=== PATIENT | male | born 1990 | race Caucasian/White ===

== ENCOUNTER 2022-04-27 07:29 | Outpatient (CLI) | payer OTHER | END 2022-04-27 07:30 | disposition home or self-care (01) | LOC: SCSMRI 07:29 | PROVIDERS: ATTEND Neurological Surgery | DX: M54.16 Radiculopathy, lumbar region (principal); M43.17 Spondylolisthesis, lumbosacral region; M48.07 Spinal stenosis, lumbosacral region | CPT/HCPCS: 72148 ==

== ENCOUNTER 2022-07-16 15:35 | Outpatient (CLI) | payer OTHER | END 2022-07-16 15:36 | disposition home or self-care (01) | LOC: SCSRAD 15:35 | PROVIDERS: ATTEND Nurse Practitioner Family | DX: M54.16 Radiculopathy, lumbar region (principal); M43.17 Spondylolisthesis, lumbosacral region | CPT/HCPCS: 72120 ==